=== PATIENT | female | born 1965 | race African-American/Black ===

== ENCOUNTER 2019-10-15 21:21 | Inpatient (IN) | payer MEDICAID ==
[~2019-10-15] VITALS: Ht 170.2 cm; Wt 79.9 kg
--- NOTE | 2019-10-15 21:35 | NUR ---
PT [id number] FROM [facility] FOR ALTERED MENTAL STATUS PER RA "SLURRED SPEECH AND UNABLE TO WALK". PT REFUSES TO ANSWER QUESTIONS AND CONSTANTLY YELLING. PT AAOX4, VSS, RESPIRATIONS EVEN AND UNLABORED ON RA W/ NAD NOTED. PT CONNECTED TO THE MONITOR AND POX
--- NOTE | 2019-10-15 22:44 | NUR ---
CALLED LAB FOR BLOOD DRAW
[2019-10-15 23:02] LABS: BASOPHILS # (AUTO) 0.1 /CMM (0.0-0.2); BASOPHILS % (AUTO) 0.8 % (0.0-2.0); EOSINOPHILS % (AUTO) 0.5 % (0.0-6.0); HEMATOCRIT 25 % (33-45); HEMOGLOBIN 7.9 g/dL (11.5-14.8); LYMPHOCYTES # (AUTO) 1.9 /CMM (0.8-4.8); LYMPHOCYTES % (AUTO) 21.1 % (20.0-44.0); MEAN CORPUSCULAR HGB CONC 31 g/dl (31.0-36.0); MEAN CORPUSCULAR VOLUME 88 fL (82-100); MONOCYTES # (AUTO) 0.6 /CMM (0.1-1.30); MONOCYTES % (AUTO) 7.1 % (2.0-12.0); NEUTROPHILS # (AUTO) 6.5 /CMM (1.8-8.9); NEUTROPHILS % (AUTO) 70.5 % (43.0-81.0); PLATELET COUNT (AUTO) 299 /CMM (150-450); RED BLOOD CELL COUNT(AUTO) 2.89 MIL/uL (4.0-5.2); WHITE BLOOD COUNT (AUTO) 9.2 K/uL (4.3-11.0)
[2019-10-15 23:11] LABS: CALCIUM, SERUM 9.3 mg/dL (8.5-10.1); POTASSIUM 3.7 mmol/L (3.5-5.1)
[2019-10-16] MEDS ORDERED: IV NS 0.9% 1,000 ML IV ONE ×2
--- NOTE | 2019-10-16 02:04 | NUR ---
PT NEEDS TO BE REORIENTED TO ROOM. NO ACUTE DISTRESS NOTED. SITTER AT BEDSIDE FOR SAFETY
--- NOTE | 2019-10-16 02:30 | NUR ---
XRAY AT BEDSIDE
--- NOTE | 2019-10-16 02:36 | NUR ---
URINE COLLECTED AND SENT TO LAB
--- NOTE | 2019-10-16 03:06 | NUR ---
COVID SWAB SAMPLE SENT TO LAB
--- NOTE | 2019-10-16 03:06 | NUR ---
BLOOD COLLECTED AND SENT TO LAB
--- NOTE | 2019-10-16 03:22 | NUR ---
KAYLEE GARCIA SPEAKING DR. HERMOSILLO REGARDING PLAN OF CARE.
--- NOTE | 2019-10-16 03:22 | NUR ---
DR MCMAHAN ON THE PHONE W/ CHRISTINA FUSING MACHINE FEEDER
[2019-10-16] MEDS ORDERED: IV NS 0.9% 500 ML BAG IV ONE (03:30)
[2019-10-16] MEDS ORDERED: IV 1/2NS 1000 ML 1,000 ML IV PRN (03:37)
[2019-10-16 03:54] LABS: ALANINE AMINOTRANSFERASE 6 U/L (12-78); ALKALINE PHOSPHATASE 53 U/L (46-116); ASPARTATE AMINOTRANSFERASE 10 U/L (15-37); BILIRUBIN,DIRECT 0.1 mg/dL (0.0-0.2); BILIRUBIN,TOTAL 0.2 mg/dL (0.2-1.0); TOTAL PROTEIN, SERUM 6.6 g/dL (6.4-8.2)
--- NOTE | 2019-10-16 03:58 | NUR ---
ABA CRISIS TEAM PARACHUTE RIGGER AT BEDSIDE FOR ASSESSMENT
[2019-10-16] MEDS ORDERED: MAG HYDROX/AL HYDROX/SIMETH 30 ML UDC PO PRN (04:00)
[2019-10-16] MEDS ORDERED: ONDANSETRON HCL/PF 4 MG/2 ML VIAL IVP PRN (04:00)
[2019-10-16] MEDS ORDERED: MAGNESIUM HYDROXIDE 30 ML UDC PO PRN (04:00)
[2019-10-16] MEDS ORDERED: HYDROCODONE/APAP 5/325MG TABLET PO PRN (04:00)
[2019-10-16] MEDS ORDERED: ACETAMINOPHEN 325 MG TABLET PO PRN (04:00)
--- NOTE | 2019-10-16 04:27 | NUR ---
REPORT GIVEN TO QUANG MICHEL FOR SCOUT
[2019-10-16] MEDS ORDERED: HALOPERIDOL LACTATE INJ 5 MG/ML VIAL IV ONE (04:30)
[2019-10-16] MEDS ORDERED: MIDAZOLAM HCL 2 MG/2ML VIAL IV ONE (04:30)
[2019-10-16] MEDS ORDERED: MIDAZOLAM HCL 2 MG/2ML VIAL ONE (04:32)
[2019-10-16 05:06] VITALS: BP 93/53
--- NOTE | 2019-10-16 05:06 | NUR ---
"RN NOTE | ADMISSION RECEIVED PATIENT FROM ER VIA GURNEY ACCOMPANIED BY 2 RNS AND TRANSFERRED TO BED VIA 2 PERSON ASSIST. PATIENT ADMITTING DIAGNOSIS FOLLOWS: WEAKNESS, HYPOTENSION, AND ENCEPHALOPATHY. PT IS ALERT AND ORIENTED X 1. PT ON ROOM AIR WITH RESPIRATIONS EVEN AND UNLABORED. INIITAL VITAL SIGNS TAKEN FOLLOWS: BP: 93/53 HR: 88 RR: 18 O2 SAT 100% AND TEMP: 97.5. WEIGHT 155LBS PER BEDSCALE. NOTED IV LINE @ R THUMB #20 AND R PINKY #22 BOTH PATENT IN INTACT,NO S/S OF INFECTION OR INFILTRATION. COMPREHENSIVE PHYSICAL ASSESSMENT DONE; SKIN ASSESSMENT DONE NO NOTED SKIN ISSUES AT THIS TIME. SAFETY MEASURES HAVE BEEN PROVIDED AND IMPLEMENTED. PATIENT BED ALARM IS ON. HEAD OF BED ELEVATED. BED IS LOCKED, IN LOWEST POSITION AND SIDE RAILS UP. CALL LIGHT WITHIN REACH OF THE PATIENT. ISOLATION PRECAUTIONS IN PLACE. WILL ADDRESS AND CARRYOUT MD ORDER SCHEDULED AND NEEDED.WILL CONTINUE TO MONITOR AND REASSESS FOR ANY CHANGES."
[2019-10-16 06:19] LABS: APPEARANCE,URINE CLEAR (CLEAR); BILIRUBIN,URINE NEGATIVE (NEGATIVE); BLOOD, URINE NEGATIVE Ery/uL (NEGATIVE); COLOR,URINE YELLOW (YELLOW); KETONES,URINE NEGATIVE (NEGATIVE); LEUKOCYTE ESTERASE ,URINE NEGATIVE (NEGATIVE); NITRITE, URINE NEGATIVE (NEGATIVE); PROTEIN,URINE NEGATIVE (NEGATIVE); UGLUCOSE NEGATIVE (NEGATIVE); UROBILINOGEN,URINE 0.2 EU/dL (0.2)
--- NOTE | 2019-10-16 06:40 | NUR ---
RN CLOSING NOTES PATIENT REMAINS IN ROOM IN NO SIGNS OF RESPIRATORY DISTRESS. PATIENT SATURATING 99%.VITAL SIGNS WNL. SAFETY PRECAUTIONS IN PLACE AND COMFORT MEASURES RENDERED. BED IN LOWEST POSITION, CALL LIGHT WITHIN REACH, BREAKS ON, SIDE RAILS UP. ALL NEEDS ATTENDED, MEDICATIONS GIVEN SCHEDULED AND ORDERED ; SHIFT ASSESSMENT/SKIN CARE DONE. PATIENT KEPT CLEAN AND DRY. WILL ENDORSE TO INCOMING SHIFT FOR SCOUT.
[2019-10-16 07:03] LABS: BASOPHILS % (AUTO) 0.1 % (0.0-2.0); EOSINOPHILS % (AUTO) 0.5 % (0.0-6.0); HEMATOCRIT 23 % (33-45); LYMPHOCYTES # (AUTO) 1.2 /CMM (0.8-4.8); LYMPHOCYTES % (AUTO) 18.6 % (20.0-44.0); MEAN CORPUSCULAR HGB CONC 31 g/dl (31.0-36.0); MEAN CORPUSCULAR VOLUME 88 fL (82-100); MONOCYTES # (AUTO) 0.5 /CMM (0.1-1.30); MONOCYTES % (AUTO) 7.3 % (2.0-12.0); NEUTROPHILS # (AUTO) 4.7 /CMM (1.8-8.9); NEUTROPHILS % (AUTO) 73.5 % (43.0-81.0); PLATELET COUNT (AUTO) 269 /CMM (150-450); RED BLOOD CELL COUNT(AUTO) 2.61 MIL/uL (4.0-5.2); WHITE BLOOD COUNT (AUTO) 6.3 K/uL (4.3-11.0)
--- NOTE | 2019-10-16 07:25 | NUR ---
RN OPENING NOTE: Received patient in bed. Awake, alert and confused. Patient noted to be screaming and agitated. Isolation precaution to R/O covid in place. On room air @ 98% noted. No SOB and not in respiratory distress. Tele monitor showing sinus rhythm in the 90s. IV sites clean, dry, patent and intact. 1/2 NS @ 75mls/hr infusing and being tolerated well. No pain reported by patient. Awaiting admission orders from MD. Call light in reach. Bed locked, low and at semi-rubi's position. Side rails up x3. Safety ensured and observed. Will continue to monitor.
[2019-10-16 07:31] LABS: ALBUMIN 1.9 g/dL (3.4-5.0); BILIRUBIN,TOTAL 0.2 mg/dL (0.2-1.0); CALCIUM, SERUM 8.6 mg/dL (8.5-10.1); CREATININE 0.6 mg/dL (0.6-1.3); PHOSPHORUS 2.6 mg/dL (2.5-4.9); TOTAL PROTEIN, SERUM 6.3 g/dL (6.4-8.2)
[2019-10-16 07:33] LABS: THYROID STIMULATING HORMONE 0.756 uIU/mL (0.358-3.74)
[2019-10-16] MEDS ORDERED: BENZ0.5T43 PO (08:56)
[2019-10-16] MEDS ORDERED: CALC-494 PO (08:56)
[2019-10-16] MEDS ORDERED: HALO5TAB8 PO (08:56)
[2019-10-16] MEDS ORDERED: LEVE1000 PO (08:56)
[2019-10-16] MEDS ORDERED: LORA2TAB95 PO (08:56)
[2019-10-16] MEDS ORDERED: PHEN100C4 PO (08:56)
[2019-10-16] MEDS ORDERED: DIVA250T4 PO (08:56)
[2019-10-16] MEDS ORDERED: LACT10SO PO (08:56)
[2019-10-16] MEDS ORDERED: GUAI100S11 PO (08:56)
[2019-10-16] MEDS ORDERED: LORA-259 PO (08:56)
[2019-10-16] MEDS ORDERED: ACET650T10 PO (08:56)
[2019-10-16] MEDS ORDERED: FERR325T23 PO (08:56)
[2019-10-16] MEDS ORDERED: L. A1CAP11 PO (08:56)
--- NOTE | 2019-10-16 09:30 | NUR ---
rn note: Pt continued to be agitated and confused. Unable to de escalate situation. Patient pulled out 2 IV sites, refused reinsertion and informed Dr. Campbell about situation. acknowledged and accepted.
[2019-10-16] MEDS ORDERED: GUAIFENESIN 300 MG/15 ML UDC PO PRN (11:30)
[2019-10-16] MEDS ORDERED: Medication Not On Formulary EA (Acetaminophen 650 MG) PO PRN (11:30)
[2019-10-16] MEDS: CALCIUM CARBONATE 500 MG TAB.CHEW PO SCH (12:00)
[2019-10-16 13:10] LABS: IRON, SERUM 33 ug/dl (50-175); TOTAL IRON BINDING CAPACITY 134 ug/dl (250-450)
[2019-10-16 13:24] LABS: FERRITIN 440 ng/mL (8-388)
--- NOTE | 2019-10-16 15:03 | NUR ---
Per RN Juan Antonio, pt is combatitive and unstable to do CT head exam. No meds scheduled today. Per QUANG Romano to attempt tomorrow 10/16 in the morning after patient has been medicated.
[2019-10-16] MEDS: LACTULOSE 10 G/15 ML UDC (PYXIS) PO SCH ×3 (17:00→18:02)
[2019-10-16] MEDS: DIVALPROEX SODIUM 250 MG TABLET.DR PO SCH ×3 (17:00→18:02)
[2019-10-16] MEDS ORDERED: DIVALPROEX SODIUM 250 MG TABLET.DR PO SCH (17:00)
[2019-10-16] MEDS ORDERED: LORAZEPAM 1 MG TABLET PO SCH (17:00)
[2019-10-16] MEDS: HALOPERIDOL 5 MG TABLET PO SCH ×3 (17:00→18:03)
[2019-10-16] MEDS: BENZTROPINE MESYLATE (1 MG) 1 MG TABLET PO SCH ×3 (17:00→18:03)
[2019-10-16] MEDS ORDERED: FERROUS SULFATE (325 MG) 325 MG/TAB TABLET PO SCH (17:00)
--- NOTE | 2019-10-16 17:00 | NUR ---
rn note: Endorsed to QUANG Starr for SCOUT.
--- NOTE | 2019-10-16 17:30 | NUR ---
RN NOTES RECEIVED REPORT FROM QUANG THIBODEAUX, RECEIVED PATIENT SITTING ON BED, AGITATED AND COMBATIVE, NO IV ACCESS, MADE AWARE. SAFETY MEASURES IN PLACE, BED IN LOWEST LOCKED POSITION WITH SIDE RAILS UP X2. CALL LIGHT WITHIN REACH. WILL CONTINUE TO MONITOR.
[2019-10-16 18:00] VITALS: BP 130/80
--- NOTE | 2019-10-16 18:10 | NUR ---
RN NOTES PATIENT AGREED TO TAKE THE MEDICATION BUT THEN SUDDENLY SPIT OUT EVERYTHING, PATIENT IS CONFUSED. SAFETY MEASURES IN PLACE, BED IN LOWEST LOCKED POSITION WITH SIDE RAILS UP X2. CALL LIGHT WITHIN REACH. WILL ENDORSE TO POWER PLANT ELECTRICIAN NURSE FOR SCOUT.
--- NOTE | 2019-10-16 19:29 | NUR ---
TELE/RN OPENING NOTES RECEIVED PATIENT IN BED, ISOLATIVE AND ON TELE AT ST 19. PATIENT REFUSE TO BE COMPLIANT WITH MEDICATIONS AND TREATMENT REPORTED TO MD BY AM RN ALREADY, PATIENT IREQUIRE ASSISTANCE FOR SAFETY, MONITORING FOR SAFETY. BED LOCKED, CALL LIGHTS WITHIN REACH. TO MONITOR, NO IV ACCESS,
--- NOTE | 2019-10-16 19:56 | NUR ---
COPYWRITER NOTES PATIENT REFUSING TO TAKE PO MEDICATION AT THIS TIME, ALERT X1 ONLY.
[2019-10-16 20:00] VITALS: BP 99/62
--- NOTE | 2019-10-16 20:31 | NUR ---
TELE/RN NOTES MD WALL TAPER HELPER CHRISTINA MADE AWARE REGARDING DOSE OF KEPPRA AND ORDERED TO HELD IT AT THIS TIME.
[2019-10-16] MEDS ORDERED: LEVETIRACETAM (250 MG) 250 MG TABLET PO SCH (21:00)
[2019-10-16] MEDS: PHENYTOIN EXTENDED RELEASE 100 MG CAPSULE PO SCH (21:24)
[2019-10-17] VITALS: BP 94/55
--- NOTE | 2019-10-17 | NUR ---
TELE/RN NOTES PATIENT OFFERED SOME FLUIDS TO DRINK, REFUSED AND DO NOT WANT TO DRINK AT THIS TIME, DISCUSSED THE IMPORTANCE SHE REFUSED TO HAVE IV ACCESS AND FOR HYDRATION AND TO PREVENT HYPOTENSION, TO MONITOR. PATIENT ABLE TO URINATE IN THE URINAL WITH DARK YELLOW COLOR URINE 300ML.
[2019-10-17 04:00] VITALS: BP 90/45
--- NOTE | 2019-10-17 04:22 | NUR ---
TELE/RN NOTES PATIENT OFFERED AND PROVIDED CRANBERRY JUICE TO DRINK AND HAVE A SIP OF WATER, PATIENT WAS PROVIDED INFORMATION ON IMPORTANCE OF HYDRATION, PATIENT CHANGED HER MIND AND SAID WOULD NOT LIKE TO HAVE IT INSERTED AT THIS TIME.
--- NOTE | 2019-10-17 04:39 | NUR ---
COVID PCR SWAB FROM THE LAB WAITING FOR SUPPLY AVAILABILITY.TO FOLLOW UP IN AM.
--- NOTE | 2019-10-17 06:13 | NUR ---
109-1TELE/RN NOTES PATIENT ABLE TO SLEEP DURING THE NIGHT, HAD ADEQUATE DINEER, PROVIDED AMD OFFERED FLUIDS, ON ROOM AIR, RESPIRATIONS EVEN AND UNLABORED, ALERT X2, FORGETFUL AND DISORIENTED REQUIRE REORIENTATION, SAFETY MEASURES AND MONITORED. BED LOCKED, CALL LIGHTS WITHIN REACH.
--- NOTE | 2019-10-17 06:33 | NUR ---
TELE/RN NOTES PATIENT ASSISTED, SUCTION NEEDED, OFFERED AND PROVIDED FLUIDS BUT PATIENT DECLINED, PATIENT REFUSED LAB DRAW AT THIS TIME, UNABLE TO PROVIDE TEACHING PATIENT UNWILLING AND UNMOTIVATED TO LEARN.
--- NOTE | 2019-10-17 07:17 | NUR ---
TELE/RN FOLLOW UP REGARDING DVT MEDICATION PER PHARMACY REMINDER, INFORMED WITH AM NURSE TO F/U WITH MD ORDER.
[2019-10-17] MEDS: CALCIUM CARBONATE 500 MG TAB.CHEW PO SCH (08:43)
[2019-10-17] MEDS: BENZTROPINE MESYLATE (1 MG) 1 MG TABLET PO SCH ×2 (08:43→17:37)
[2019-10-17] MEDS: LACTULOSE 10 G/15 ML UDC (PYXIS) PO SCH ×3 (08:44→17:00)
[2019-10-17] MEDS: HALOPERIDOL 5 MG TABLET PO SCH ×2 (08:44→17:38)
[2019-10-17] MEDS: DIVALPROEX SODIUM 250 MG TABLET.DR PO SCH ×2 (08:44→17:38)
--- NOTE | 2019-10-17 09:32 | NUR ---
RN NOTE Confirmed Keppra dose with Dickson DEL RIO at [facility]. Patient takes Keppra 1,000mg PO Daily. Changed order per Elina Padilla.PErica
[2019-10-17 10:00] VITALS: BP 130/82
[2019-10-17] MEDS: LEVETIRACETAM (250 MG) 250 MG TABLET PO SCH ×2 (10:07→21:47)
[2019-10-17] MEDS: LORAZEPAM 1 MG TABLET PO PRN (11:05)
--- NOTE | 2019-10-17 11:24 | NUR ---
RN NOTE Patient is angry, yelling, getting out of bed, hitting. Ativan given PO. patient is currently in bed, sleeping, fall and safety seizure precautions enforced. Will continue to monitor.
[2019-10-17 12:00] VITALS: BP 124/76
[2019-10-17 16:00] VITALS: BP 122/72
--- NOTE | 2019-10-17 16:31 | NUR ---
JONATHAN CALLED NURSE REGARDING PATIENT 109-T-1 AT 16:00 HRS. STATED PER RN (NICHELLE) PATIENT IS COMBATIVE NO MEDS SCHEDULTED TODAY, TO ATTEMPT CT EXAM TOMORROW WHEN PATIENT IS MORE STABLE. RTN CALL AT 15:30 RN BUSY WILL CALL AGAIN AT 17:00
--- NOTE | 2019-10-17 18:39 | NUR ---
RN CLOSING NOTE Patient is resting in bed, A/O x2, aggressive and agitated at times with periods of confusion. Patient has no complaints of pain. Patient has no IV line, MD is aware. Patient was able to eat about 50% of all meals today and able to drink fluids by herself. Patient is ambulatory with assist to bathroom. No BM today. ct technician is at bedside drawing blood--patient refused all day and finally agreed to have blood drawn at this time. Bed is in lowest position, side rails x3 in upright position, call light is within reach, fall safety seizure and aspiration precautions enforced. Will endorse to press assistant and feeder.
[2019-10-17 18:57] LABS: BASOPHILS % (AUTO) 0.5 % (0.0-2.0); EOSINOPHILS % (AUTO) 1.9 % (0.0-6.0); HEMATOCRIT 30 % (33-45); HEMOGLOBIN 8.5 g/dL (11.5-14.8); LYMPHOCYTES # (AUTO) 2.8 /CMM (0.8-4.8); LYMPHOCYTES % (AUTO) 32.9 % (20.0-44.0); MEAN CORPUSCULAR HGB CONC 29 g/dl (31.0-36.0); MEAN CORPUSCULAR VOLUME 95 fL (82-100); MONOCYTES # (AUTO) 0.5 /CMM (0.1-1.30); MONOCYTES % (AUTO) 6.4 % (2.0-12.0); NEUTROPHILS # (AUTO) 4.9 /CMM (1.8-8.9); NEUTROPHILS % (AUTO) 58.3 % (43.0-81.0); PLATELET COUNT (AUTO) 319 /CMM (150-450); RED BLOOD CELL COUNT(AUTO) 3.12 MIL/uL (4.0-5.2); WHITE BLOOD COUNT (AUTO) 8.5 K/uL (4.3-11.0)
[2019-10-17 19:03] LABS: CREATININE 0.6 mg/dL (0.6-1.3); MAGNESIUM 1.8 mg/dL (1.8-2.4)
[2019-10-17] MEDS: PHENYTOIN EXTENDED RELEASE 100 MG CAPSULE PO SCH (21:47)
--- NOTE | 2019-10-18 04:52 | NUR ---
8PM ambulating in the hallway unable to talk her in to going back to her room, she was not giving eye contact, and verbalizing her needs, "mt table needs to be cleaned and now!" "I need a telephone to talk to my people" "my be needs to be changed" When all the needs were met she got into bed and went to sleep. No SOB this shift afebrile Addendum: 10/18/19 at 0506 by LACHO RUSS RN REFUSED VITAL SIGNS THIS SHIFT VERBALIZING "NO" AND NOT GIVING US HER ARM TO PLAVE THE b/p CUFF ON THE MONITOR SHE IS SR TO ST HR 93
--- NOTE | 2019-10-18 07:15 | NUR ---
PHARMACEUTICAL DETAILER NOTES PATIENT ON WHEELCHAIR IN THE HALLWAY WITH MASK ON. WASH OPERATOR NEXT TO WHEELCHAIR. PATIENT HAS AGGRESSION AND CURSING AT NURSES. MOVE PATIENT IN TO HER ROOM. NO SOB OR DISCOMFORT AT THIS TIME. NO IV LINES NOTED, PER LAB REP NURSE AWARE FOR NO HAVING IV SITE. WILL CONTINUE TO MONITOR THE PATIENT.
--- NOTE | 2019-10-18 07:30 | NUR ---
KRISHNA RN NOTES PATIENT IS ON WHEELCHAIR AGITATED, CURSING. TAKEN HER TO THE ROOM AND SHE WAS ABLE TO AMBULATE INTO HER BED. ATIVAN GIVEN.
[2019-10-18] MEDS: LORAZEPAM 1 MG TABLET PO PRN (07:43)
[2019-10-18] MEDS: CALCIUM CARBONATE 500 MG TAB.CHEW PO SCH ×2 (09:00→09:48)
[2019-10-18] MEDS: LACTULOSE 10 G/15 ML UDC (PYXIS) PO SCH ×4 (09:00→17:27)
[2019-10-18] MEDS: BENZTROPINE MESYLATE (1 MG) 1 MG TABLET PO SCH ×2 (09:47→17:28)
[2019-10-18] MEDS: DIVALPROEX SODIUM 250 MG TABLET.DR PO SCH ×2 (09:47→17:28)
[2019-10-18] MEDS: LEVETIRACETAM (250 MG) 250 MG TABLET PO SCH ×2 (09:48→21:48)
[2019-10-18] MEDS: HALOPERIDOL 5 MG TABLET PO SCH ×2 (09:48→17:28)
--- NOTE | 2019-10-18 12:00 | NUR ---
APPOINTMENT MANAGER NOTES FACE SHEET SENT TO [facility] FOR PSYCH CONSULTATION.
--- NOTE | 2019-10-18 13:07 | NUR ---
DIRECTOR OF OUTSIDE SALES NOTES PATIENT IS REFUSING VITALS TO BE TAKEN.
--- NOTE | 2019-10-18 18:59 | NUR ---
MS RN NOTES PATIENT IN BED AWAKE. NO SOB OR DISCOMFORT NOTED AT THIS TIME. ALL NEEDS ATTENDED. MEDS GIVEN. DURING SHIFT PATIENT REQUESTED TO BE SEATED IN THE HALLWAY WITH ALL PPE ON. NO MAJOR CHANGES DURING SHIFT. FACE SHEET SENT TO [facility] FOR PSYCH CONSULT. NO OCCULT BLOOD (STOOL SAMPLE) OBTAINED (NO BM). CT WAS NOT DONE TODAY. CALL LIGHT WITHIN REACH. REPORT GIVEN TO PLANNING INTERN NURSE FOR SCOUT.
--- NOTE | 2019-10-18 19:10 | NUR ---
RN OPENING NOTE RECEIVED A PATIENT IN BED RESTING ALERT ORIENTED X2 VERBALLY RESPONSIVE NO SOB NOT ACUTE DISTRESS NOTED PATIENT IS ON ROOM AIR O2:97% AMBULATE WITH ASSIST,CONTINENT TO BOWEL/BLADDER NO IV,REPORTED BY PREVIOUS SHIFT REFUSED LABS AND VITAL SIGNS,CONTINUE TO MONITOR.
--- NOTE | 2019-10-18 20:20 | NUR ---
RN CLOSING NOTE PATIENT TRANSFERRED TO [facility] ROOM 205 BED 2 IN STABLE CONDITION,WITH ALL BELONGINGS.
[2019-10-18 20:30] VITALS: BP 94/57
[2019-10-18] MEDS: PHENYTOIN EXTENDED RELEASE 100 MG CAPSULE PO SCH (21:48)
[2019-10-18 22:49] LABS: BASOPHILS # (AUTO) 0.1 /CMM (0.0-0.2); BASOPHILS % (AUTO) 0.6 % (0.0-2.0); EOSINOPHILS % (AUTO) 2.4 % (0.0-6.0); HEMATOCRIT 25 % (33-45); HEMOGLOBIN 7.7 g/dL (11.5-14.8); LYMPHOCYTES # (AUTO) 2.3 /CMM (0.8-4.8); MEAN CORPUSCULAR HGB CONC 31 g/dl (31.0-36.0); MEAN CORPUSCULAR VOLUME 87 fL (82-100); MONOCYTES # (AUTO) 0.7 /CMM (0.1-1.30); MONOCYTES % (AUTO) 6.5 % (2.0-12.0); NEUTROPHILS # (AUTO) 6.8 /CMM (1.8-8.9); NEUTROPHILS % (AUTO) 67.5 % (43.0-81.0); PLATELET COUNT (AUTO) 323 /CMM (150-450); RED BLOOD CELL COUNT(AUTO) 2.82 MIL/uL (4.0-5.2)
--- NOTE | 2019-10-18 22:49 | NUR ---
MS DEL RIO NOTES RECEIVED PATIENT FROM KRISHNA, REPORT RECEIVED FROM FERNANDEZ. PATIENT ARRIVED VIA WHEELCHAIR. WILL CONTINUE TO MONITOR THROUGHOUT THE NIGHT. Addendum: 10/18/19 at 2251 by RISHI ALMANZAR RN WRONG TIME- RECEIVED PATIENT AT 2039
[2019-10-18 23:06] LABS: CALCIUM, SERUM 8.9 mg/dL (8.5-10.1); CREATININE 0.6 mg/dL (0.6-1.3); MAGNESIUM 1.7 mg/dL (1.8-2.4)
--- NOTE | 2019-10-19 06:41 | NUR ---
MS RN CLOSING CLOSING NOTES PATIENT IN BED RESTING, A/O X2 MUMBLING AND CALM. STABLE ON RA WITH BREATHING EVEN AND UNLABORED, NO SOB NOTED. NO SIGNS OF ACUTE DISTRESS. NO COMPLAINTS OF PAIN OR DISCOMFORT AT THE MOMENT. NO IV ACCESS. SAFETY PRECAUTIONS IN PLACE WITH BED IN LOWEST POSITION, CALL LIGHT WITHIN REACH, BREAKS ON, SIDE RAILS UP. ALL NEEDS ATTENDED TO. PATIENT KEPT CLEAN AND DRY THROUGHOUT THE NIGHT. WILL ENDORSE TO ONCOMING SHIFT ABOUT SCOUT.
[2019-10-19 06:48] LABS: BASOPHILS % (AUTO) 0.2 % (0.0-2.0); EOSINOPHILS % (AUTO) 2.7 % (0.0-6.0); HEMATOCRIT 24 % (33-45); HEMOGLOBIN 7.6 g/dL (11.5-14.8); LYMPHOCYTES # (AUTO) 2.4 /CMM (0.8-4.8); LYMPHOCYTES % (AUTO) 27.6 % (20.0-44.0); MEAN CORPUSCULAR HGB CONC 31 g/dl (31.0-36.0); MEAN CORPUSCULAR VOLUME 87 fL (82-100); MONOCYTES # (AUTO) 0.6 /CMM (0.1-1.30); MONOCYTES % (AUTO) 6.9 % (2.0-12.0); NEUTROPHILS # (AUTO) 5.5 /CMM (1.8-8.9); NEUTROPHILS % (AUTO) 62.6 % (43.0-81.0); PLATELET COUNT (AUTO) 321 /CMM (150-450); RED BLOOD CELL COUNT(AUTO) 2.79 MIL/uL (4.0-5.2); WHITE BLOOD COUNT (AUTO) 8.7 K/uL (4.3-11.0)
[2019-10-19 07:24] LABS: CREATININE 0.6 mg/dL (0.6-1.3); MAGNESIUM 1.9 mg/dL (1.8-2.4)
[2019-10-19 08:00] VITALS: BP 95/52
--- NOTE | 2019-10-19 08:00 | NUR ---
MS RN OPENING NOTES Received Patient resting in bed. A/O x 2. VS stable with no acute distress. Breathing even and unlabored on room air with no respiratory distress. Denies pain. No signs and symptoms of pain. No IV access, MD aware. Safety precautions in place. Bed locked and set to lowest position with side rails x 2 up. All needs rendered at this time. Call light within reach. Will continue to monitor.
[2019-10-19] MEDS: DIVALPROEX SODIUM 250 MG TABLET.DR PO SCH ×2 (08:08→16:59)
[2019-10-19] MEDS: BENZTROPINE MESYLATE (1 MG) 1 MG TABLET PO SCH ×2 (08:08→16:59)
[2019-10-19] MEDS: HALOPERIDOL 5 MG TABLET PO SCH ×2 (08:09→16:59)
[2019-10-19] MEDS: CALCIUM CARBONATE 500 MG TAB.CHEW PO SCH (08:09)
[2019-10-19] MEDS: LEVETIRACETAM (250 MG) 250 MG TABLET PO SCH ×2 (08:09→21:55)
[2019-10-19] MEDS: LACTULOSE 10 G/15 ML UDC (PYXIS) PO SCH ×2 (09:12→16:58)
--- NOTE | 2019-10-19 10:07 | NUR ---
Certified Professional Ergonomist: This SW spoke with QUANG Hawley regarding this patient's pending psych consult. This SW requesting a friendly reminder for the MD.
--- NOTE | 2019-10-19 13:30 | NUR ---
This SW was contacted by ski edge painter Anne regarding the patient being cleared for discharge back to [facility]. This SW contacted QUANG Valencia to confirm this information and inform her that this SW would send the paperwork over to [facility] at [facility] . QUANG Valencia to send updated progress note this SW to be included in the clinicals. SW to remain available for all needs regarding this patient.
[2019-10-19] MEDS ORDERED: LORAZEPAM 1 MG TABLET PO PRN (15:30)
[2019-10-19 16:00] VITALS: BP 95/57
--- NOTE | 2019-10-19 19:28 | NUR ---
MS RN CLOSING NOTES Patient resting in bed. A/O x 2. VS stable with no acute distress. Breathing even and unlabored on room air with no respiratory distress. Denies pain. No signs and symptoms of pain. No IV access, MD aware. Safety precautions in place. Bed locked and set to lowest position with side rails x 2 up. All needs rendered at this time. Call light within reach. Will endorse plan of care to oncoming shift.
--- NOTE | 2019-10-19 19:52 | NUR ---
MS RN OPENING NOTES: RECEIVED PT ON ROOM AIR AND IS TOLERATING WELL. NO SOB NOTED. NO S/S OF DISTRESS. PT IS A/OX 1 TO SELF AND KEEPS CRYING AND YELLING. PT HAS NO IV AT THIS TIME AND IS REFUSING. MD IS AWARE. BED KEPT IN LOW, LOCKED POSITION, AND SIDE RAILS X 3 UP. BED ALARM ACTIVATED. WILL CONTINUE TO MONITOR PT.
[2019-10-19 20:00] VITALS: BP 100/54
--- NOTE | 2019-10-19 20:00 | NUR ---
MS RN NOTES: PT ONLY ALLOWS FOR BP TO BE TAKEN WHEN LYING DOWN. PT GETS UPSET WHEN PT GETS SAT UP TO GET CHECKED FOR ORTHOSTATICS. ALSO, PT TOO WEAK TO STAND UP.
[2019-10-19] MEDS: PHENYTOIN EXTENDED RELEASE 100 MG CAPSULE PO SCH (21:55)
--- NOTE | 2019-10-20 06:33 | NUR ---
MS RN CLOSING NOTES: ALL NEEDS WERE ATTENDED AND ANTICIPATED FOR. PT KEPT CLEAN, DRY, AND COMFORTABLE. JUST CALLED [employer] FOR SOME PANTS PT IS REQUESTING FOR SOME. PT HAS NO IV AT THIS TIME SHE IS REFUSING AND MD IS AWARE. BED KEPT IN LOW, LOCKED POSITION, AND SIDE RAILS X 3UP. BED ALARM ACTIVATED WITH CALL LIGHT WITHIN REACH. PT ANTICIPATING TO GO BACK TO [facility] SHE KEEPS ASKING WHEN SHE IS LEAVING. WILL ENDORSE TO AM NURSE FOR SCOUT. Addendum: 10/20/19 at 0640 by KIKI BAILEY RN PT VERY PLEASED THAT PANTS WERE GIVEN TO HER.
--- NOTE | 2019-10-20 07:09 | NUR ---
MS DEL RIO NOTES: ENDORSED TO QUANG SUAZO, FOR SCOUT.
--- NOTE | 2019-10-20 07:40 | NUR ---
Patient refused blood draw in am.
[2019-10-20] MEDS: LACTULOSE 10 G/15 ML UDC (PYXIS) PO SCH (08:21)
[2019-10-20] MEDS: DIVALPROEX SODIUM 250 MG TABLET.DR PO SCH (08:22)
[2019-10-20] MEDS: HALOPERIDOL 5 MG TABLET PO SCH (08:22)
[2019-10-20] MEDS: LEVETIRACETAM (250 MG) 250 MG TABLET PO SCH (08:22)
[2019-10-20] MEDS: BENZTROPINE MESYLATE (1 MG) 1 MG TABLET PO SCH (08:23)
[2019-10-20] MEDS: CALCIUM CARBONATE 500 MG TAB.CHEW PO SCH (08:23)
[2019-10-20 09:21] LABS: BASOPHILS % (AUTO) 0.3 % (0.0-2.0); EOSINOPHILS % (AUTO) 2.7 % (0.0-6.0); HEMATOCRIT 27 % (33-45); HEMOGLOBIN 8.3 g/dL (11.5-14.8); LYMPHOCYTES # (AUTO) 2.1 /CMM (0.8-4.8); LYMPHOCYTES % (AUTO) 29.5 % (20.0-44.0); MEAN CORPUSCULAR HGB CONC 31 g/dl (31.0-36.0); MEAN CORPUSCULAR VOLUME 87 fL (82-100); MONOCYTES # (AUTO) 0.5 /CMM (0.1-1.30); MONOCYTES % (AUTO) 6.8 % (2.0-12.0); NEUTROPHILS # (AUTO) 4.4 /CMM (1.8-8.9); NEUTROPHILS % (AUTO) 60.7 % (43.0-81.0); PLATELET COUNT (AUTO) 366 /CMM (150-450); RED BLOOD CELL COUNT(AUTO) 3.05 MIL/uL (4.0-5.2); WHITE BLOOD COUNT (AUTO) 7.2 K/uL (4.3-11.0)
[2019-10-20 09:30] LABS: CREATININE 0.5 mg/dL (0.6-1.3); POTASSIUM 3.8 mmol/L (3.5-5.1)
[2019-10-20 10:27] LABS: CALCIUM, SERUM 9.4 mg/dL (8.5-10.1)
--- NOTE | 2019-10-20 10:44 | NUR ---
This SW faxed over clinicals to [facility] at [facility] Ja Carvalho (fax). SW to remain available for all needs of this patient.
--- NOTE | 2019-10-20 13:02 | NUR ---
This SW was contacted by Rosanne at [facility]. Patient has been accepted to this psychatric facility but needed the MD to state on the discharge note "pt medically cleared and ready for transfer." This SW requested the assistance of Biomedical Engineering Director Abril to help make the adjustment.
--- NOTE | 2019-10-20 13:04 | NUR ---
This SW faxed over the clinicals to Rosanne at [facility] including the necessary discharge note with addendum. SW awaiting confirmation of bed.
--- NOTE | 2019-10-20 14:04 | NUR ---
Report called to [facility] nursing delivery department supervisor.
--- NOTE | 2019-10-20 15:20 | NUR ---
1:30pm This SW received confirmation that patient was accepted at [facility]. This SW inquired assistance for transport from Factory Lay Out Engineer QUANG Samuels. This SW gave QUANG Lynch the following number to submit nursing report
--- NOTE | 2019-10-20 15:33 | NUR ---
Patient medically cleared for d/c to physiatric unit at [facility] by MD. Patient awake , oriented to self and place, forgetful. [place] unsteady and she needs assistance. Patient has episodes of agitation; at this time calm and cooperative. VS are taken and at baseline, afebrile. Breathing unlabored on room air with saturation above 95%. Patient has no skin issues. Patient has no belongings and clothes provided. No IV assess, ID wrist band removed. Al needs attended before d/c. No PRN medication given. Patient refused d/c instructions. Pt safely picked up by ambulance.
== END 2019-10-20 17:48 | DRG 48 ==
LOC: ER 21:24 → TELE1 10-16 04:56 → MEDSG1 10-18 16:26 → MEDSG2 10-18 20:11
PROVIDERS: ADMIT Internal Medicine; ATTEND Nurse Practitioner Acute Care
DX: G90.8 Other disorders of autonomic nervous system (principal); G40.909 Epilepsy, unspecified, not intractable, without status epilepticus; F32.9 Major depressive disorder, single episode, unspecified; D64.9 Anemia, unspecified; I95.9 Hypotension, unspecified; Z91.19 Patient's noncompliance with other medical treatment and regimen; Z77.090 Contact with and (suspected) exposure to asbestos; Z87.01 Personal history of pneumonia (recurrent); F29 Unspecified psychosis not due to a substance or known physiological condition; E61.1 Iron deficiency; G92 Toxic encephalopathy; T50.905A Adverse effect of unspecified drugs, medicaments and biological substances, initial encounter; Y92.9 Unspecified place or not applicable; F25.9 Schizoaffective disorder, unspecified; G31.84 Mild cognitive impairment of uncertain or unknown etiology
CPT/HCPCS: 36415; 71045-TC; 80048-TC; 80053-TC; 80061-TC; 80076-TC; 80164-TC; 80305; 81000-TC; 82728-TC; 83540-TC; 83605-TC; 83735-TC; 84100-TC; 84443-TC; 84484-TC; 85025-TC; 87040-TC; 87081-TC; 87086-TC; 93307-TC; G0378; J2250; J3490; J7030; U0003-CS